=== PATIENT | female | born 1985 | race Caucasian/White ===

== ENCOUNTER 2023-05-08 11:38 | Emergency (ER) | payer OTHER, SELFPAY ==
--- NOTE | ~2023-05-08 | XR_ITS ---
Clinical Indication: Cough PA and lateral views of the chest: Comparison: None Findings: The lungs are clear, without evidence of focal consolidation or pleural effusion. Cardiome diastinal silhouette is within normal limits. Bones and soft tissues are unremarkable. Impression: Normal chest. Reviewed, dictated and finalized at location . Impression: Normal chest.
[2023-05-08 12:02] VITALS: BP 122/90; PULSE 108; RESP 20; TEMP 36.6; O2SAT 100
--- NOTE | 2023-05-08 12:07 | ED.URI ---
HPI - URI/Sore Throat General Chief Complaint: Upper Respiratory Infection Stated Complaint: cough,sob Time Seen by Provider: 05/08/23 12:07 Source: patient, RN notes reviewed and old records reviewed Mode of arrival: ambulatory Limitations: no limitations History of Present Illness HPI Narrative: 37 year old female who presents to [facility] care with complaints of cough and some shortness of breath for the past month. Patient reports that she received antibiotic, steroid,inhaler, Tessalon Perles, and codeine cough syrup which she states gave her hives. Patient reports that since Sunday she has had body aches and runny nose and cough just continues. Patient reports that she is taking Mia, Robitussin, DayQuil,NyQuil Vitamin C, using her inhaler, and taking Benadryl with no improvement in her symptoms. Patient reports that her upper chest is sore from coughing so much, no tachypnea noted SAO2 100% on room air, reports no fevers,chills or sweats. Patient reports that she had negative at home COVID test done on Sunday, has been COVID vaccinated and boosted. MD elicited complaint: cough, rhinorrhea and nasal congestion Onset (ago): month(s) Pain scale (0-10): 5 Able to tolerate fluids by mouth: Yes Treatments prior to arrival: cold medicine and other (Mia, inhaler, Benadryl, Robitussin) Related Data Home Medications Medication Instructions Recorded Confirmed etonogestrel 0.12 mg-ethinyl See Rx Instructions .Route .COMPLEX 05/08/23 05/08/23 estradiol 0.015 mg/24 hr vaginal ring (uRyng) Allergies Allergy/AdvReac Type Severity Reaction Status Date / Time codeine AdvReac Mild Hives Verified 05/08/23 12:18 Review of Systems Review of Systems: CONSTITUTIONAL: Reports malaise, no chills, sweats, or fever. EYES: Denies visual changes, redness, or discharge. ENT: Reports rhinorrhea, congestion, sinus pain, no otalgia and sore throat. CARDIOVASCULAR: Denies chest pain, palpitations, or edema.Chest soreness related to cough RESPIRATORY: Reports cough.? reports dyspnea. GASTROINTESTINAL: Denies abdominal pain, nausea, vomiting, diarrhea SKIN: Denies rash or itching. MUSCULOSKELETAL: Reports myalgia on Sunday NEUROLOGIC: Denies headache. All systems reviewed & are unremarkable except as noted in HPI and below PMFSH Past Medical History Medical History (Updated 05/09/23 @ 06:56 by Sonal Lizama NP) Bronchitis COVID-19 History of sinus problem Surgical History Surgical History (Updated 05/09/23 @ 06:54 by Sonal Lizama NP) H/O breast augmentation History of tonsillectomy Hx of shoulder surgery bilateral Social History Social History (Updated 05/09/23 @ 06:50 by Sonal Lizama NP) Smoking status: Never smoker Alcohol intake: unknown Substance use: never Substance use type: does not use Living arrangements: with family Gender identity (if verbalized by the patient): Female Comments At time of signature, agree with nursing past medical, surgical, social and family history. There is no relevant family history pertinent to the presenting complaint Exam Narrative: GENERAL: Well-appearing, well-nourished, and in no acute distress. HEAD: Normocephalic EYES: PERRLA, conjunctivae clear ENT: Nares clear, turbinates edematous and erythematous, clear discharge. Mucous membranes moist. TM pearly thomas with dull light reflex bilaterally; no tragal tenderness. Oropharynx erythematous without lesions. Tonsils not present and throat without exudate, no drooling, no hoarseness, no trismus, uvula midline.post nasal drainage noted. NECK: Supple. No lymphadenopathy CHEST: Clear to auscultation, breath sounds equal. No wheezing, rhonchi, rales, or stridor. No respiratory distress, speaks in full sentences.cough,SAO2 100% on room air HEART: Regular rate and rhythm. No murmur heard. SKIN: Warm, dry, no rash. NEURO: Alert and oriented x3. PSYCH: Normal mood and affec
== END 2023-05-08 12:32 | disposition home or self-care (01) ==
PROVIDERS: Emergency Provider Registered Nurse; PCP Family Medicine
DX: J32.9 Chronic sinusitis, unspecified (principal); R05.1 Acute cough; Z86.16 Personal history of COVID-19
CPT/HCPCS: 71046; 99213; G0463

== ENCOUNTER 2025-05-04 07:39 | Outpatient (CLI) | payer OTHER, SELFPAY ==
--- NOTE | ~2025-05-04 | MM_ITS ---
EXAMINATION: MM diag cesia implant BI w josi HISTORY: Breast pain TECHNIQUE: Additional 3-D tomosynthesis images of the breasts were performed and synthetic 2-D images were generated. CAD analysis was submitted and interpreted. COMPARISON: No prior studies for comparison. BREAST PARENCHYMAL COMPOSITION: Not Dense: The breasts are almost entirely fatty. FINDINGS: There are bilateral subpectoral saline implants. There are no suspicious masses, calcificat ions or architectural distortion in either breast to suggest malignancy. IMPRESSION: 1. No mammographic evidence for malignancy in either breast. 2. Routine yearly screening mammogram and regular clinical breast examination are recommended. BI-RADS Category 1: Negative Reviewed, dictated and finalized at location A. IMPRESSION: 1. No mammographic evidence for malignancy in either breast. 2. Routine yearly screening mammogram and regular clinical breast examination a re recommended. BI-RADS Category 1: Negative
== END 2025-05-04 07:40 | disposition home or self-care (01) ==
PROVIDERS: PCP Student in an Organized Health Care Education/Training Program; Visit Provider Student in an Organized Health Care Education/Training Program
DX: N64.4 Mastodynia (principal)
CPT/HCPCS: 77062; 77066; G0279

== ENCOUNTER 2025-07-26 14:59 | Emergency (ER) | payer OTHER, SELFPAY ==
--- OUTSIDE RECORDS SUMMARY | 2020-04-21 04:15 | XMS_ITS | Continuity of Care Document ---
Author Organization [email or web address] Address [address] [place] [address] Phone Care Team Providers [facility] [employer] Founder Name Role Phone Sherron Nation MD Unavailable Unavailable Allergies, Adverse Reactions, Alerts Substance Reaction Status Criticality codeine Active No Information Medications Medication Instructions Dosage Effective Dates (start - stop) Status Comments Wellbutrin XL 300 mg 24 hr tablet, extended release take 1 tablet by oral route every day 300 MG - Active Lexapro 20 mg tablet TAKE 1 TABLET BY ORAL ROUTE EVERY DAY - Active Dosage was increased to 20mg daily NuvaRing 0.12 mg -0.015 mg/24 hr vaginal insert 1 vaginal ring by vaginal route every month leave in place for 3 weeks, remove for 1 week 1.00 vaginal ring - Active Procedures Procedure Date Pt inelig neg scrn depres IMMUN ADMIN (INC PERCUTANEOUS) SINGLE, F IRST INJ FLU VAC NO PRSV 4 DUNCAN, 0.5mL DOSAGE OFFICE [id number] BODY MASS INDEX DOCD SYST BP LT 130 MM HG DIAST BP < 80 MM HG OFFICE [id number] BODY MASS INDEX DOCD SYST BP LT 130 MM HG DIAST BP < 80 MM HG Pt inelig neg scrn depres OFFICE [id number] BODY MASS INDEX DOCD SYST BP >= 140 MM HG6 IT DIAST BP >= 90 MM HG Advance Directives Directive Yes / No Effective Date File Name No Information Encounters Encounter Description Practice Location Reason(s) For Visit Diagnoses Date Provider Providers Copied on Encounter [facility], [address], [place], [place], [address], tel:[phone] [place] No Information [address], [address] , [place]. tel:[phone] [facility], [address], [place], [place], [address], tel:[phone] [place] Chronic low back pain with sciatica, sciatica laterality unspecified, unspecified back pain lateralityOther chronic pain [address], [address] , [place]. [phone] Referring Provider: Sherron Kee, [address] [place], [address] . tel:[phone] OFFICE [id number] LCOVER [facility], [address], [place], [place], [address], tel:[phone] [place] Back pain f/u (chief complaint)f /u major depression (chief complaint) Body mass index (BMI) 39.0-39.9, adultLow back pain, unspecified back pain laterality, unspecified chronicity, unspecified whether sciatica presentMajor depressive disorder in partial remission, unspecified whether recurrent [address] [place], [place], [address] , [place]. [phone] Referring Provider: Sherron Kee, [address] [place], [address] . tel:[phone] [facility], [address], [place], [place], [address], tel:[phone] [place] No Information [address] [place], [place], [address] , [place]. tel:[phone] [facility], [address], [place], [place], [address], [place] tel:[phone] [place] No Information [address], [address] , [place]. tel: [phone] OFFICE IUSXA-VVZ-THP ANDED [facility], [address], [place], [place], [address], [place] tel:[phone] [facility] follow up (chief complaint) Right-sided low back pain with right-sided sciatica, unspecified chronicity [address], [address] , [place]. tel: [phone] Referring Provider: Sherron Kee, [address] [place], [address] . tel:[phone] [facility], [address], [place], [place], [address], tel:[phone] [place] Severe low back pain Jun- 9 [address] [place], [address] , [place]. tel: [phone] [facility], [address], [place], [place], [address], [place] tel:[phone] [place] Severe low back pain [address] [place], [address] , [place]. tel: [phone] [facility], [address], [place], [place], [address], [place] tel:[phone] [facility] discuss weight loss options (chief complaint) Body mass index (BMI) 40.0-44.9, adultMorbid (severe) obesity due to excess caloriesElevated BP without diagnosis of hypertensionMajor depressive disorder in partial remission, unspecified whether recurrent [address] [place], [address] , [place]. tel: [phone] Referring Provider: Sherron Kee, [address] [place], [address] . tel:[phone] [employer], [address], [place], [place], [address], tel:[phone] [place] Routine medical examModerate episode of recurrent major depressive disorderMorbid (severe) obesity due to excess caloriesBody mass index (BMI) 40.0-44.9, adultMorbid (severe) obesity due to excess calories [address] [place], [address] , [place]. tel:[phone] Referring Provider: Sherron Kee, [address] [place], [address] . tel:[phone] [facility], [address], [place], [place], [address], tel:[phone] [place] Routine general medical examination at a health care facilityScreening for lipoid disorders [address], [address] , [place]. [phone] [facility], [address], [place], [place], [address], tel:[phone] [place] Body mass index (BMI) 40.0-44.9, adultMorbid (severe) obesity due to excess caloriesAcute URIModerate episode of recurrent major depressive disorder [address] [place], [address] , [place]. tel:[phone] Referring Provider: Sherron Kee, [address] [place], [address] . tel:[phone] [facility], [address], [place], [place], [address], tel:[phone] [place] Moderate episode of recurrent major depressive disorderBody mass index (BMI) 40.0-44.9, adultMorbid (severe) obesity due to excess calories Sep-0 [address] [place], [address] , [place]. [phone] Referring Provider: Sherron Kee, [address] [place], [address] . tel:[phone] [facility], [address], [place], [place], [address], tel:[phone] [facility] Moderate episode of recurrent major depressive disorderBody mass index (BMI) 40.0-44.9, adultMorbid (severe) obesity due to excess calories [address] [place], [address] , [place]. [phone] Referring Provider: Sherron Kee, [address] [place], [address] . tel:[phone] [facility], [address], [place], [place], [address], tel:[phone] [facility] AnxietyRecurrent major depressive disorder, in partial remissionBody mass index (BMI) 40.0-44.9, adultMorbid (severe) obesity due to excess calories [address] [place], [address] , [place]. [phone] Referring Provider: Sherron Kee, [address] [place], [address] . tel:[phone] [facility], [address], [place], [place], [address], [place] tel:[phone] [facility] AnxietyRoutine general medical examination at a health care facilityScreening for lipoid disordersFamily history of diabetes mellitus in father Jan- 8 [address], [address] , [place]. [phone] Referring Provider: Sherron Kee, [address] [place], [address] . tel:[phone] [facility], [address], [place], [place], [address], tel:[phone] [facility] Morbid (severe) obesity due to excess caloriesRoutine general medical examination at a health care facilityRecurrent major depressive disorder, in partial remissionAnxiety Jan- 8 [address] [place], [address] , [place]. tel:[phone] Referring Provider: Sherron Kee, [address] [place], [address] . tel:[phone] Family History Family Member Type Diagnosis Age At Onset Father Problem (finding) diabetes mellitus type 2 Mother Problem (finding) osteoarthritis Immunizations Vaccine Date Status Comments Fluzone Quad, preservative free, split virus, 0.5mL dosage administered Source: New Immuniza tion Record Payers Payer name Insurance type Covered alliance party ID Authoriza tion(s) [facility] [id number] Social History Type Description Quantity Date Captured Comments Sex Female Smoking Status No Information Sexual Orientation Straight or heterosexual Gender Identity Female Chief Complaint And Reason For Visit No Information Reason For Referral Reason For Referral No Information Plan Of Treatment Date Type Action Status Goal Dietary management education , guidance, and counseling completed Goal Dietary management education , guidance, and counseling completed Referral Referred To: Sher Ordered: Referrals: Pain MedicineLiu Olivarez. Evaluate and treat - Level 2 Appointment date/timeframe: 09/29/2019 ordered Referral Ordered: MRI, spine, lumbar, without contrast Appointment date/timeframe: 09/08/2019 ordered Referral Referred To: Physical Therapy [address] [place] [address], [phone] Ordered: Referrals: Physical Therapy. Location: [facility] Physical Therapy [facility] Evaluate and treat - Level 2 Appointment date/timeframe: 07/08/2019 ordered Referral Ordered: X-RAY EXAM OF LUMBAR SPINE, A/P & LAT Appointment date/timeframe: 06/17/2019 ordered Referral Referred To: [facility] neurosurgery Ordered: Referrals: Neurosurgery. [facility] neurosurgery. Evaluation/diagnostic/treatment - Level 3 Appointment date/timeframe: 06/23/2019 ordered History Of Present Illness Encounter Date Complaint History Of Prese nt Illness f/u major depression Pt still ta bull wellbutrin and lexapro without SE's. Mood has improved since taking both meds. No SI's. Feels tired chronically even when going to PT to exercise and motivation still frequently low.Still sees counselor regularliy which is helpful. Back pain f/u Pt. here for f/u low back pain.States pain is worse when arching her lower back or when tilting hips forward.Has constant pain in buttocks and down the legs in the bilateral lateral thighs.No weakness in the legs. No paresthesias down the legs. No known alleviating factors. Taking ibuprofen and sometimes aspirin for pain as needed usually in the morning and sometimes later in the day. ER follow up Pt. here for ER f/u- pt. states she has been having low back pain for past 2.5 months without ay known injury. Seen in ER on 07/07/19 with severe low back pain that started early the morning prior and developed tightness in the lower back and was unable to get out of bed due to severe sharp pain in the back and right buttock and hip area. Took oxycodone that she had left from shoulder surgery from Dr. Urrutia.Pt. was given toradol injection in the ER and was given flexeril and ibuprofen.Still has constant low back pain. discuss weight loss options Pt. here to discuss weight loss optoins.Has morbid obesity and has tried and failed multiple weight loss attempts.Most recently going to a weight loss clinic in [place] and taking phentermine as prescribed at the clinic.BP running higher since starting med.States they advised her to follow 800 kristie/day diet but not able to do this and consuming approx. 1400 kristie/day with approx. 4 pound weight loss over past 1 to 2 months. Disappointed in lack of weight loss.Trying to do more activity but no regular exercise routine.Has major depression on lexapro without SE's and still struggles with feeling depressed but mood has been better over past few months. No SI's or HI's. Functional Status Date Functional Assessmen t No Information Instructions Date Instruction Additional Infor tucker MRI of lumbar spine ordered- we will notify you with results Related to Low back pain, unspecified back pain laterality, unspecified chronicity, unspecified whether sciatica present continue current med scontinue regular visits with your counselingcontinue to work on regular exerciseStatus: Able to self-manage condition. Goals: Your goal is to be active. Barriers: No barriers to goal achievement have been identified. Related to Major depressive disorder in partial remission, unspecified whether recurrent Giving encouragement to exercise Related to Body mass index (BMI) 39.0-39.9, adult Dietary management e ducation, guidance, and counseling Related to Body mass index (BMI) 39.0-39.9, adult continue ibuprofen u p to 3 times daily with food and plenty of waterCan also take tylenol up to 2 tabs 3 times daily as needed for painApply an ice pack alternating with heating pad as neededstart physical therapy as orderedfollow up if worsening Related to Right-sided low back pain with right-sided sciatica, unspecified chronicity continue lexapro Related to Kerri r depressive disorder in partial remission, unspecified whether recurrent Rx. given for Saxend a- start with 0.6mg subcutanously once daily for one week; increase by 0.6 mg daily at weekly intervals to a target dose of 3 mg once dailyMay cause nausea and if symptoms occur with dose increase and are severe, then back down to previous dosePlease call the [facility] clinic to set up an appt. to have an evaulation to discuss bariatric options Related to Morbid (severe) obesity due to excess calories Recommend stopping t he phentermine since this may be causing your blood pressure to increasetry to limit sodiumincrease walking Related to Elevated BP without diagnosis of hypertension Dietary management e ducation, guidance, and counseling Related to Body mass index (BMI) 40.0-44.9, adult Exercise Assessments Type Assessment Date No Information Patient Care Teams Name Effective Dates (start - stop) Status Members No Information
--- NOTE | ~2025-07-26 | XR_ITS ---
EXAMINATION: XR wrist RT min 3V, 07/26/2025 16:00 CDT HISTORY: trauma COMPARISON: No comparisons available. Findings: No acute fracture or malalignment. No significant degenerative changes. Soft tissues unremarkable. Impression: No acute fracture or malalignment. Reviewed, dictated and finalized at location A. Impression: No acute fracture or malalignment.
--- NOTE | ~2025-07-26 | XR_ITS ---
EXAMINATION: XR shoulder RT min 2V, 07/26/2025 16:00 CDT HISTORY: trauma COMPARISON: No comparisons available. Findings: No acute fracture or malalignment. No significant degenerative changes. Soft tissues unremarkable. Impression: No acute fracture or malalignment. Reviewed, dictated and finalized at location A. Impression: No acute fracture or malalignment.
--- NOTE | ~2025-07-26 | XR_ITS ---
EXAMINATION: XR elbow RT min 3V, 07/26/2025 16:00 CDT HISTORY: trauma COMPARISON: No comparisons available. Findings: No acute fracture or malalignment. No significant degenerative changes. Soft tissues unremarkable. Impression: No acute fracture or malalignment. Reviewed, dictated and finalized at location A. Impression: No acute fracture or malalignment.
--- NOTE | ~2025-07-26 | CT_ITS ---
EXAMINATION: CT brain wo con COMPARISON: None HISTORY: trauma TECHNIQUE: Axial images were obtained through the brain without IV contrast. CT scan performed using dose optimization techniques including the following automated exposure control; adjustment of mA and/or kV; use of iterative reconstruction technique. Automatic exposure control was used to reduce radiation dose. Permanent radiation dose record is archived to PACS. FINDINGS: No acute infarct or parenchymal hemorrhage. No abnormal mass or mass effect. No midline shift. No extra-axial fluid collections. No hydrocephalus. . Mastoid air cells unremarkable. Sinuses and orbits unremarkable. No acute fracture. No significant facial or scalp soft tissue swelling evident. No radiopaque foreign body is seen. Impression: 1.No acute intracranial abnormality. Reviewed, dictated and finalized at location A. Impression: 1.No acute intracranial abnormality.
[2025-07-26 15:12] VITALS: BP 143/89; PULSE 113; RESP 20; TEMP 36.8; O2SAT 99
--- NOTE | 2025-07-26 15:41 | ED.GENADULT ---
HPI - General Adult General Chief complaint: Extremity Injury, Upper Stated complaint: fell down 8 steps, right arm pain Time Seen by Provider: 07/26/25 15:27 History of Present Illness HPI narrative: 39-year-old female presenting to the emergency department for evaluation after having a fall down approximately 8 steps. Patient states she tripped and fell down the steps. Patient did strike her head does report brief loss of consciousness. Patient does have an abrasion to her back. Patient does complain of right buttock pain and right arm pain. Patient states the pain involves her shoulder elbow wrist and long bones in between. Related Data Home Medications ?Medication ?Instructions ?Recorded ?Confirmed ?Last Taken ?Type etonogestrel 0.12 mg-ethinyl See Rx Instructions .Route .COMPLEX 05/08/23 05/08/23 Unknown History estradiol 0.015 mg/24 hr vaginal ring (EluRyng) Allergies Allergy/AdvReac Type Severity Reaction Status Date / Time codeine AdvReac Mild Hives Verified 07/26/25 16:18 Review of Systems Review of Systems: All systems reviewed & are unremarkable except as noted in HPI and below PMFSH Past Medical History Medical History (Updated 07/26/25 @ 16:52 by Milan Lawson MD) History of sinus problem Bronchitis COVID-19 Surgical History Surgical History (Updated 05/09/23 @ 06:54 by Sonal Lizama NP) History of tonsillectomy H/O breast augmentation Hx of shoulder surgery bilateral Social History Social History (Updated 05/09/23 @ 06:50 by Sonal Lizama NP) Smoking status: Never smoker Alcohol intake: unknown Substance use: never Substance use type: does not use Living arrangements: with family Gender identity (if verbalized by the patient): Female Exam Narrative: APPEARANCE: Well appearing, no pain, no distress, well-nourished. HEAD: normocephalic, atraumatic. EYES: PERRLA/EOMI, conjunctivae clear. NOSE: Normal no drainage EARS:TMS clear with good light reflex. THROAT: Pharynx clear, no exudate. NECK: Supple. No adenopathy, no masses. RESPIRATORY: Airway patent, respirations nonlabored. Clear to auscultation bilaterally, no rales, rhonchi, wheezing. CARDIOVASCULAR: Regular rate and rhythm without murmurs rubs or gallops. ABDOMINAL: Soft, nontender, nondistended, normal bowel sounds MUSCULOSKELETAL: Tenderness to right shoulder right elbow right forearm right wrist with no ecchymosis or deformity NEURO: Alert. Cranial nerves II through XII intact. Good gait. Good coordination SKIN: Abrasion to back Course Vital Signs Vital signs: Vital Signs Temperature 98.2 F 07/26/25 15:12 Pulse Rate 113 H 07/26/25 15:12 Respiratory Rate 20 07/26/25 15:12 Blood Pressure 143/89 H 07/26/25 15:12 Pulse Oximetry 99 07/26/25 15:12 Temperature 98.2 F 07/26/25 15:12 Pulse Rate 78 07/26/25 17:20 Respiratory Rate 16 07/26/25 17:20 Blood Pressure 139/74 07/26/25 17:20 Pulse Oximetry 99 07/26/25 17:20 Medical Decision Making MDM Narrative Medical decision making narrative: 39-year-old female present to the emergency department for evaluation after having a fall down some steps. Patient did have loss conscious head CT was negative for acute intracranial abnormality. Patient had x-rays of shoulder elbow and wrist and these were all negative for fracture dislocation. Patient declined any medications for pain control. Patient will be advised to take Tylenol and ibuprofen for pain control and be provided a sling for comfort and along with Flexeril for muscle spasm. Differential Diagnosis Differential Diagnosis: Subdural hematoma, subarachnoid hemorrhage, abrasion, shoulder fracture, elbow fracture, wrist fracture, shoulder dislocation Vital Signs Vital Signs: Vital Signs Temperature 98.2 F 07/26/25 15:12 Pulse Rate 113 H 07/26/25 15:12 Respiratory Rate 20 07/26/25 15:12 Blood Pressure 143/89 H 07/26/25 15:12 Pulse Oximetry 99 07/26/25 15:12 Temperature 98.2 F 07/26/25 15:12 Pulse Rate 78 07/26/25 17:20 Respiratory Rate 16 07/26/25 17:20 Blood Pressure 139/74 07/26/25 17:20 Pulse Oximetry 99 07/26/25 17:20 Imaging Data Radiologist's impression: Impressions Head CT 07/26/25 15:54 Impression: 1.No acute intracranial abnormality. Elbow X-Ray 07/26/25 16:23 Impression: No acute fracture or malalignment. Shoulder X-Ray 07/26/25 16:23 Impression: No acute fracture or malalignment. Wrist X-Ray 07/26/25 16:24 Impression: No acute fracture or malalignment. Discharge Plan Discharge Clinical Impression: Head injury, Abrasion, Acute shoulder pain, Elbow pain, Acute wrist pain Patient Disposition: Home Condition: Stable Instructions: Antibiotic Form, Head Injury (DC), Arthralgia (ED) Additional Instructions: Tylenol and ibuprofen for pain control. Flexeril for muscle spasm. Have close follow-up with your primary care physician. Patient Language: Citizen Of [place] Prescriptions: New cyclobenzaprine 10 mg tablet 10 mg PO BID PRN (Reason: muscle spasm) Qty: 14 0RF No Action etonogestrel-ethinyl estradiol [EluRyng] 0.12-0.015 mg/24 hr ring See Rx Instructions .ROUTE .COMPLEX Rx Instructions: 1 vag ring vaginally amoxicillin-pot clavulanate 875-125 mg tablet 1 tablet PO Q12H Qty: 20 0RF prednisone 20 mg tablet 20 mg PO BID Qty: 10 0RF Rx Instructions: take with food Follow-up/Referrals: Deven,MD Francisco J [Primary Care Provider, Unknown]
--- OUTSIDE RECORDS SUMMARY | 2025-07-26 16:06 | XMS_ITS | Clinical Summary ---
Author Organization [facility] Address [address] [place] [address] Care Team Providers Care Offset Platemaker Name Role Phone Francisco J Carvalho MD Primary Care Provider [phone] Allergies Active Allergy Reactions Criticality Noted Date Comments Hydrocodone Hives,Itching,Rash High 11/29/2017 Medications cyclobenzaprin e (FLEXERIL) 10 mg tablet cyclobenzaprine 10 mg tablet TK 1 T PO Q 12 H PRN Active etonogestreL-e thinyl estradioL (NUVARING, ELURYNG) 0.12-0.015 mg/24 hr vaginal ring Insert into the vagina Active gabapentin (NEURONTIN) 300 mg capsule gabapentin 300 mg capsule TK 1 C PO TID UTD 11/17/20 19 Active phentermine (ADIPEX-P) 37.5 mg tablet phentermine 37.5 mg tablet TK 1 T PO QD IN THE MORNING Active buPROPion XL (WELLBUTRIN XL) 300 mg 24 hr tablet bupropion HCl XL 300 mg 24 hr tablet, extended release 08/26/20 19 Active ergocalciferol (VITAMIN D) 50,000 unit capsule ergocalciferol (vitamin D2) 1,250 mcg (50,000 unit) capsule Active pregabalin (LYRICA) 75 mg capsule TAKE ON E TABLET QHS 30 capsule 04/19/20 20 Active Active Problems No known active problems Surgical History Surgery Date Site/Laterality Comments SHOULDER DEBRIDEMENT Left ROTATOR CUFF REPAIR 11/19/2018 - 11/18/2019 Bilateral SHOULDER ARTHROSCOPY DISTAL CLAVICLE EXCISION AND OPEN ROTATOR CUFF REPAIR 11/19/2018 - 11/18/2019 Bilateral TRANSUMBILICAL AUGMENTATION MAMMAPLASTY 11/19/2005 - 11/18/2006 Medical History Medical History Date Comments Wrist fracture, bilateral 1998 Family History Medical History Relation Name Comments Arthritis Mother Psoriasis Mother Psoriasis Sister Relation Name Status Comments Mother Sister Social History Tobacco Use Types Packs/Day Years Used Date Smoking Tobacco: Never Smokeless Tobacco: Never Alcohol Use Standard Drinks/Week Comments Yes 0 (1 standard drink = 0.6 oz pur e alcohol) twice a week Personal Safety Answer Date Recorded Getting School Help Needed Not on file 01/13 Comments Unknown Sex and Gender Information Value Date Recorded Sex Assigned at Not on file Legal Sex Female 11:34 PM YOUTH PA[employer]OR Gender Identity Not on file Sexual Orientation Not on file Obstetrics History Last Filed Vital Signs Vital Sign Reading Time Taken Comments Blood Pressure 148/95 04/09/2022 7:20 PM CDT Pulse 106 04/09/2022 7:20 PM CDT Temperature 36.2 C (97.2 F) 04/09/2022 1:51 PM CDT Respiratory Rate 14 04/09/2022 7:20 PM CDT Oxygen Saturation 97% 04/09/2022 7:20 PM CDT Inhaled Oxygen Concentration - - Weight 128.4 kg (283 lb) 04/09/2022 1:51 PM CDT Height 177.8 cm (5' 10) 04/09/2022 1:51 PM CDT Body Mass Index 40.61 04/09/2022 1:51 PM CDT Plan of Treatment Not on file Insurance [id number] [employer] [facility]/PPO Address: [facility] [address] [place] [address] [employer] [facility] [facility]/PPO Address: [address] [place] [address] [employer] [facility] [facility]/PPO Address: [address] [place] [address] Care Teams Offset Platemaker Relationship Specialty Start Date End Date Francisco J Carvalho MD [address] [place] [address] [place] [address] PCP - General Family Medicine 01/29/20
--- OUTSIDE RECORDS SUMMARY | 2025-07-26 16:06 | XMS_ITS | Clinical Summary ---
Author Organization [facility] Address [address] [place] [address] Care Team Providers Care Electronics System Mechanic Name Role Phone Sherron Nation MD Unavailable [phone] Francisco J Carvalho MD Primary Care Provider [phone] Allergies Active Allergy Reactions Criticality Noted Date Comments Hydrocodone Hives,Itching 01/22/2019 Medications Etonogestrel-Et hinyl Estradiol 0.12-0.015 MG/24HR RING Place 1 Application vaginally monthly. Active buPROPion 24 hr 150 MG 24 hr tablet TK 1 T PO QD 2 9 Active aspirin-acetami nophen-caffeine 250-250-65 MG tablet Take 1 tablet by mouth every 6 (six) hours as needed for Pain. Active escitalopram 20 MG tablet Take 20 mg by mouth daily. 1 9 Active buPROPion XL 300 MG 24 hr tablet Take 300 mg by mouth daily. 1 9 Active gabapentin 300 MG capsule Take 300 mg by mouth 3 (three) times daily. 9 Active lidocaine 4 % patch Place 1 patch onto the skin daily. Remove & Discard patch within 12 hours or as directed by 7 patch 1 Active Active Problems Problem Noted Date Diagnosed Date S/P arthroscopy of right shoulder 06/20/2019 Osteoarthritis of right acromioclavicular joint 06/17/2019 Stress fracture of right clavicle 04/29/2019 S/P arthroscopy of right shoulder 01/22/2019 Incomplete tear of right rotator cuff 01/14/2019 Tear of right glenoid labrum, subsequent encount er 01/14/2019 Right knee pain 07/12/2016 Chronic insomnia 03/17/2015 Anxiety 02/10/2015 Obesity 02/10/2015 Shoulder pain 07/07/2014 Immunizations Immunization Administration Dates Next Due HPV 12/30/2010,08/29/2010,06/27/2010 Hepatitis B Pediatric 02/11/1998,09/10/1997,07/21 Family History Medical History Relation Comments Seizures Mother gout Mother Relation Status Comments Mother Social History Tobacco Use Types Packs/Day Years Used Date Smoking Tobacco: Never Smokeless Tobacco: Never Alcohol Use Standard Drinks/Week Comments Yes 0 (1 standard drink = 0.6 oz pur e alcohol) 2-3 drinks weekly Comments No Sex and Gender Information Value Date Recorded Sex Assigned at Not on file Legal Sex Female 8:36 AM CDT Gender Identity Not on file Sexual Orientation Not on file Last Filed Vital Signs Vital Sign Reading Time Taken Comments Blood Pressure 131/82 05/09/2021 10:23 AM CDT Pulse 63 05/09/2021 10:23 AM CDT Temperature 36.8 C (98.2 F) 05/09/2021 7:04 AM CDT Respiratory Rate 18 05/09/2021 10:23 AM CDT Oxygen Saturation 100% 05/09/2021 10:23 AM CDT Inhaled Oxygen Concentration - - Weight 133 kg (293 lb 3.4 oz) 05/09/2021 7:04 AM CDT Height 177.8 cm (5' 10) 05/09/2021 7:04 AM CDT Body Mass Index 42.07 05/09/2021 7:04 AM CDT Plan of Treatment Health Maintenance Due Date Last Done Comments Cervical Cancer Screening Pap Smear (Age 30 to 64) Every 3 Years 1987 Annual Physical 1990 Hepatitis C 2005 Cervical Cancer Screening Pap with HPV Testing (Age 30 to 64) Every 5 Years 2017 Cervical Cancer Screening with HPV 2017 COVID-19 Vaccine ( season) 2025 02/27/2021, 02/27/2021, 02/04/2021, Additional history exists DTaP, Tdap and Td Vaccines (2 - Td or Tdap) 12/03/2029 12/03/2019 Hepatitis B Vaccines Completed 02/11/1998, 09/10/1997, 08/13/1997 HPV Vaccines Completed 12/30/2010, 08/19, 06/27/2010 Meningococcal B Vaccine Aged Out No l onger eligible based on patient's age to complete this topic Meningococcal Vaccine Aged Out No [place] grace eligible based on patient's age to complete this topic Pneumococcal Vaccine: Pediatrics (0 to 5 Years) and At-Risk Patients (6 to 49 Years) Aged Out No longer eligible based on patient's age to complete this topic RSV Immunizations Under 20 Months Aged Out No longer eligible based on patient's age to complete this topic Medical Devices Implanted Type Area Ovens Supervisor Device Identifier Shelf Expiration Date Model / Serial / Lot [place] [employer] Pushlock Biocomposite 2.9 X 12.5mm - [id number] Implanted:Qty: 1 on 01/22/2019 by Derrick Urrutia MD at [facility] Right: Shoulder [employer] 01/17/2020 [id number] / / [id number] [place] [employer] Pushlock Biocomposite 2.9 X 12.5mm - [id number] Implanted:Qty: 1 on 01/22/2019 by Derrick Urrutia MD at [facility] Right: Shoulder [employer] 12/19/2019 [id number] / / [id number] Insurance Care Teams Electronics System Mechanic Relationship Specialty Start Date End Date Francisco J Carvalho MD PCP - General FAMILY PRACTICE 12/16/19 Sherron Nation MD INTERNAL MEDICINE 09/05/19
--- OUTSIDE RECORDS SUMMARY | 2025-07-26 16:06 | XMS_ITS | Patient Health Record ---
Author Organization [facility] Address [address] [facility] [address] [place] [address] Care Team Providers Care Pulverizer Tender Name Role Phone Jerad Garber Unavailable [phone] Reason For Referral No Information Medications Medication SIG (Take, Route, Frequency, Duration) Notes Start Date End Date Status Clindamycin Phosphate 1% Lotion External Active Ketoconazole 2% Shampoo External Active Doxycycline Monohydrate 100 MG Tablet Oral Active Vyvanse 30 MG Capsule Oral Active CLINDAMYCIN-BENZOYL PEROXIDE 1-5 % Gel External *Reorder from [employer] for eRx and Interaction Alerts* Active Vyvanse 40 MG Capsule Oral Active ELURYNG 0.12 MG-0.015 MG/24 HR VAGINAL RING *Reorder from [employer] for eRx and Interaction Alerts* Active Propranolol HCl 10 MG Tablet Oral Active ALPRAZolam 0.5 MG Tablet Oral Active NUVARING 0.12 MG-0.015 MG/24 HR VAGINAL *Reorder from [employer] for eRx and Interaction Alerts* Active fluvoxaMINE Maleate 100 MG Tablet Oral Active buPROPion HCl ER (XL) 150 MG Tablet Extended Release 24 Hour Oral Active Social History Social History Additional Details Category Social Info Options Details Migrated Social History Migrated Social History Tobacco Years: Never smoker 03/17/2024 Plan Of Treatment No Information Insurance Providers Payer Name Payer Address Payer Phone Subscriber Number Group Number Insured Name Patient Relationship to Insured Coverage Start Date Coverage End Date [employer] Ppo [address] [place] [id number] SHAYAL TOTH Self - patient is the insured
[2025-07-26] MEDS: CYCLOBENZAPRINE HCL 10 MG TABLET PO (16:21)
[2025-07-26 17:20] VITALS: BP 139/74; PULSE 78; RESP 16; O2SAT 99
== END 2025-07-26 17:21 | disposition home or self-care (01) ==
PROVIDERS: Emergency Provider Emergency Medicine; PCP Family Medicine
DX: S09.90XA Unspecified injury of head, initial encounter (principal); M25.511 Pain in right shoulder; M25.521 Pain in right elbow; M25.531 Pain in right wrist; S30.810A Abrasion of lower back and pelvis, initial encounter; W10.9XXA Fall (on) (from) unspecified stairs and steps, initial encounter
CPT/HCPCS: 70450; 73030; 73080; 73110; 99284; A4565; A9270